=== PATIENT | male | born 1990 | race Caucasian/White ===

== ENCOUNTER 2018-01-22 21:21 | Emergency (ER) | payer SELFPAY ==
[2018-01-22 21:31] VITALS: RESP 18
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
[2018-01-22 22:56] VITALS: PULSE 98
[2018-01-23 04:15] VITALS: BP 110/76
[2018-01-23 04:38] LABS: Amphetamine Screen,Urine Not Detected (NotDetected); Barbiturate Screen,Urine Not Detected (NotDetected); Benzodiazepines Screen,Urine Not Detected (NotDetected); Cocaine Screen,Urine Not Detected (NotDetected); Methadone Screen, Urine Not Detected (NotDetected); Opiate Screen,Urine Not Detected (NotDetected); Oxycodone Screen, Urine Not Detected (NotDetected); Phencyclidine Screen,Urine Not Detected (NotDetected); Tricyclic Antidepressant,Urine Not Detected (NotDetected); Urn Cannabinoid Scrn Not Detected (NotDetected)
[2018-01-23 05:25] VITALS: TEMP 98
== END 2018-01-23 05:25 | disposition home or self-care (01) ==
LOC: EC 21:21
DX: F10.120 Alcohol abuse with intoxication, uncomplicated (principal); F17.200 Nicotine dependence, unspecified, uncomplicated; Z88.0 Allergy status to penicillin; Z91.030 Bee allergy status
CPT/HCPCS: 80306; 82075; 99284

== ENCOUNTER 2020-12-24 21:09 | Emergency (ER) | payer BC ==
[2020-12-24 21:18] VITALS: BP 123/86; PULSE 105; RESP 16; TEMP 97.9
[2020-12-24] MEDS ORDERED: PROPARACAINE 0.5% OPHTH DROPS 15 ML BTL RIGHT EYE STA (22:47)
[2020-12-24] MEDS ORDERED: FLUORESCEIN STRIPS 1 MG STRIP RIGHT EYE ONE (23:10)
[2020-12-24] MEDS ORDERED: ERYTHROMYCIN 5 MG/GM OPHTH OINT 1 GM TUBE RIGHT EYE STA (23:26)
--- NOTE | 2020-12-24 23:28 | ED ---
Skin/Abscess/FB HPI - General Chief complaint: Skin/Abscess/Foreign Body Stated complaint: R eye injury Time Seen by Provider: 12/24/20 22:46 Source: patient, family Mode of arrival: ambulatory - History of Present Illness Initial comments: 30 year-old female patient presents to the emergency department for foreign body to the right eye. Patient states he was working on a car when something flew into his eye. He is concerned it is rust. This occurred around 0400 this morning. States the eye has been irritated all day. Denies blurred or double vision. States there has been clear drainage. Denies fever. Wears glasses, no contacts. Tetanus updated 2 years ago. - Related Data Allergies Allergy/AdvReac Type Severity Reaction Status Date / Time bee venom protein (honey bee) Allergy Unknown Verified 12/24/20 21:16 Penicillins Allergy Unknown Verified 12/24/20 21:16 Review of Systems ROS Statement: Those systems with pertinent positive or pertinent negative responses have been documented in the HPI. ROS Other: All systems not noted in ROS Statement are negative. Past Medical History Past Medical History: No Reported History History of Any Multi-Drug Resistant Organisms: None Reported Past Surgical History: Hernia Repair Past Psychological History: No Psychological Hx Reported Smoking Status: Current every day smoker Past Alcohol Use History: Daily Past Drug Use History: None Reported General Exam General appearance: alert, in no apparent distress, other (Physical well- developed, well-nourished adult male patient in no acute distress. Vital signs upon presentation are temperature 97.9F, pulse 105, respirations 16, blood pressure 123/86, pulse ox 100% on room air.) Eye exam: Present: PERRL, EOMI, other (Fluorescein stain with Wood's lamp examination was performed showed large foreign body to the right cornea around 7:00. Negative Loraine sign. No evidence for other corneal injury.). Absent: normal appearance, scleral icterus, conjunctival injection, periorbital swelling Expanded Eyelids: Swelling: Right Pupils: Regular, Round: Bilateral Sclera/Conjunctival: Injection: Right Anterior chamber: Normal Inspection: Right Course Vital Signs 12/24/20 21:16 Temperature 97.9 F Pulse Rate 105 H Respiratory 16 Rate Blood Pressure 123/86 O2 Sat by Pulse 100 Oximetry Procedures - Forgein Body Removal Eye Site: Right Location in eye(s): 7:00, cornea Anesthetic Used: Proparacaine Eye Exam Technique: Gaines Lamp, Fluorescein Foreign Body Suspected: Metal Forgein Body Removal Technique: Cotton Swab Remaining Debris: Yes (rust ring) Patient Tolerated: no complications Medical Decision Making - Medical Decision Making 30-year-old male patient presented to the emergency department today for evaluation of foreign body to the right eye. Physical examination did reveal evidence for large foreign body to the right cornea around 7:00. I was able to remove most of the foreign body, rust ring left. He was given erythromycin ointment with instructions for use. Instructed to follow-up with education diagnostician for recheck in 1-2 days. Return parameters were discussed in detail. He verbalizes understanding and agrees with this plan. My attending is Dr. Bach. Disposition Clinical Impression: Foreign body of right eye Disposition: HOME SELF-CARE Condition: Good Instructions (If sedation given, give patient instructions): Eye Foreign Body (ED) Additional Instructions: Use ointment 1 cm to the lower eyelid 4 times daily while awake. Follow-up with education diagnostician for further evaluation in 1-2 days. Return for any new, worsening, or concerning symptoms. Is patient prescribed a controlled substance at d/c from ED?: No Referrals: Adelia Dietz MD [STAFF PHYSICIAN] - 1-2 days Time of Disposition: 23:27
== END 2020-12-24 23:54 | disposition home or self-care (01) ==
LOC: EC 21:09
DX: T15.81XA Foreign body in other and multiple parts of external eye, right eye, initial encounter (principal); W45.8XXA Other foreign body or object entering through skin, initial encounter; F17.200 Nicotine dependence, unspecified, uncomplicated; Y93.89 Activity, other specified; Y92.810 Car as the place of occurrence of the external cause
CPT/HCPCS: 65220; 99282